=== PATIENT | male | born 1935 ===

== ENCOUNTER 2024-10-25 12:15 | Outpatient (CLI) | payer MEDICARE, OTHER ==
[2024-10-25] MEDS ORDERED: Magnevist 469MG/ML 20 ML VIAL ONE (15:39)
== END 2024-10-25 12:16 | disposition home or self-care (01) ==
LOC: CSHMRI 12:15
PROVIDERS: ATTEND Urology
DX: R97.20 Elevated prostate specific antigen [PSA] (principal); N42.9 Disorder of prostate, unspecified
CPT/HCPCS: 36415; 72197; 82565